=== PATIENT | female | born 1985 ===

== ENCOUNTER 2021-08-04 22:55 | Observation (INO) | payer OTHER, SELFPAY ==
[2021-08-05] MEDS ORDERED: Acetaminophen 500 MG TAB PO PRN (03:22)
[2021-08-05 03:54] VITALS: BMI 25.7
[2021-08-05 04:31] LABS: #Eosinphils 0.1 thou/uL (0.0-0.7); #Lymphocytes 2.1 thou/uL (1.20-3.40); #Monocytes 0.3 thou/uL (0.11-0.59); #Neutrophils 2.8 thou/uL (1.40-6.50); %Basophils 0.3 % (0.0-1.0); %Lymphocytes 38.8 % (21.0-51.0); %Monocytes 4.9 % (0.0-10.0); %Neutrophils 53.8 % (42.0-75.0); Hemoglobin 12.9 g/dL (12.0-16.0); Mean Corpuscular HGB CONC 32.4 g/dL (32.0-36.0); Mean Corpuscular Volume 83.4 fL (78.0-98.0); Mean Platelet Volume 6.7 fL (7.4-10.4); Platelet Count 336 thou/uL (130-400); RBC Distribution Width 15.3 % (11.5-14.5); Red Blood Cell (RBC) Count 4.76 mill/uL (4.20-5.40); White Blood Cell (WBC) Count 5.3 thou/uL (4.8-10.8)
[2021-08-05 04:52] LABS: ALT (SGPT) 890 U/L (8-55); AST (SGOT) 688 U/L (5-34); Albumin 3.6 g/dL (3.5-5.0); Alkaline Phosphatase 331 U/L (40-110); Anion Gap 10 mmol/L (10-20); BUN (Urea Nitrogen) 10 mg/dL (7.0-18.7); Bilirubin, Total 2.3 mg/dL (0.2-1.2); Calc. Creatinine Clearance 110 mL/min (70-130); Calcium 8.6 mg/dL (7.8-10.44); Carbon Dioxide 23 mmol/L (22-29); Chloride 109 mmol/L (98-107); Globulin 3.5 g/dL (2.4-3.5); Glucose 99 mg/dL (70-105); Potassium 3.6 mmol/L (3.5-5.1); Protein, Total 7.1 g/dL (6.0-8.3); Sodium 138 mmol/L (136-145)
[2021-08-05 04:56] LABS: PTT 25.3 sec (22.9-36.1); Prothrombin Time 13.3 sec (12.0-14.7)
[2021-08-05 05:31] LABS: SARS-CoV-2 NAA Rapid Test Not Detected (NotDetected)
[2021-08-05] MEDS: Sodium Chloride 0.9% 1,000 ML IV SCH ×2 (05:50→20:28)
[2021-08-05] MEDS ORDERED: FLU VACC QS2021-22(6MOS UP)/PF 60 MCG/0.5 ML SYRINGE IM ONE (09:00)
[2021-08-05] MEDS ORDERED: Magnevist 469MG/ML 20 ML VIAL ONE (10:56)
[2021-08-05 11:16] LABS: Prothrombin Time 13.1 sec (12.0-14.7)
[2021-08-05 11:44] LABS: HBCM Index 0.15 S/CO (0-0.79); HBSAg Index 0.21 S/CO (0-0.99); Hep A IgM AB Non-Reactive (NonReactive); Hep A IgM S/CO 0.24 S/CO (0-0.79); Hep B Surf Ag Non-Reactive S/CO (NonReactive); Hep C IgG Ab Non-Reactive (NonReactive); Hepatitis B Core IgM Abs Non-Reactive (NonReactive)
[2021-08-05] MEDS ORDERED: diphenhydrAMINE 50 MG/ML VIAL IVP PRN (12:56)
[2021-08-05] MEDS ORDERED: methylPREDNISolone Sod Succ/PF 125 MG/2 ML VIAL IVP SCH (13:15)
[2021-08-05] MEDS ORDERED: Famotidine/PF 20 mg/2ml Vial SLOW IVP SCH (13:15)
[2021-08-06] MEDS: Sodium Chloride 0.9% 1,000 ML IV SCH (05:28)
[2021-08-06 06:47] LABS: ALT (SGPT) 780 U/L (8-55); AST (SGOT) 299 U/L (5-34); Albumin 3.4 g/dL (3.5-5.0); Alkaline Phosphatase 381 U/L (40-110); Anion Gap 10 mmol/L (10-20); BUN (Urea Nitrogen) 8 mg/dL (7.0-18.7); Calc. Creatinine Clearance 119 mL/min (70-130); Calcium 8.8 mg/dL (7.8-10.44); Carbon Dioxide 22 mmol/L (22-29); Chloride 110 mmol/L (98-107); Globulin 3.5 g/dL (2.4-3.5); Glucose 97 mg/dL (70-105); Iron 99 ug/dL (50-170); Iron Binding Capacity, Total 268 mcg/dL (265-497); Protein, Total 6.9 g/dL (6.0-8.3); Sodium 138 mmol/L (136-145)
[2021-08-06 06:55] LABS: Prothrombin Time 13.5 sec (12.0-14.7)
[2021-08-06 07:13] LABS: #Basophils 0.1 thou/uL (0.0-0.2); #Lymphocytes 1.8 thou/uL (1.20-3.40); #Monocytes 0.4 thou/uL (0.11-0.59); #Neutrophils 5.7 thou/uL (1.40-6.50); %Basophils 1.3 % (0.0-1.0); %Eosinophils 0.4 % (0.0-10.0); %Monocytes 5.2 % (0.0-10.0); %Neutrophils 71.2 % (42.0-75.0); Hemoglobin 12.9 g/dL (12.0-16.0); Mean Corpuscular HGB CONC 31.2 g/dL (32.0-36.0); Mean Corpuscular Hemoglobin 27.2 pg (27.0-31.0); Mean Corpuscular Volume 87.2 fL (78.0-98.0); Mean Platelet Volume 8.6 fL (7.4-10.4); Platelet Count 212 thou/uL (130-400); RBC Distribution Width 15.7 % (11.5-14.5); Red Blood Cell (RBC) Count 4.74 mill/uL (4.20-5.40)
[2021-08-06] MEDS ORDERED: Bupivacaine 0.25% HCL 30 ML VIAL ONE (07:36)
[2021-08-06] MEDS ORDERED: EPINEPHrine 1 MG/ML AMP ONE (07:36)
[2021-08-06] MEDS ORDERED: Iothalamate Meglumine 60% 50 ML VIAL FS ONE (07:36)
[2021-08-06] MEDS ORDERED: Fentanyl 250 MCG/5 ML VIAL ONE ×2 (07:52→10:00)
[2021-08-06] MEDS ORDERED: Midazolam HCl 2 mg/2 ml Vial ONE (07:52)
[2021-08-06] MEDS ORDERED: SUGAMMADEX SODIUM 200 MG/2 ML VIAL ONE (07:53)
[2021-08-06] MEDS ORDERED: Ondansetron PF 4 MG/2 ML Vial ONE (08:00)
[2021-08-06] MEDS ORDERED: PROPOFOL 200 MG/20 ML VIAL ONE (08:00)
[2021-08-06] MEDS ORDERED: Glycopyrrolate 0.2 MG/ML 5 ML SYRINGE ONE (08:00)
[2021-08-06] MEDS ORDERED: Rocuronium Bromide 10 MG/ML (10ML VIAL) ONE (08:00)
[2021-08-06] MEDS ORDERED: Ketorolac Tromethamine 30 MG/ML VIAL ONE (08:00)
[2021-08-06] MEDS ORDERED: Dexamethasone 20 MG/5 ML VIAL ONE (08:00)
[2021-08-06] MEDS ORDERED: Lidocaine 1% PF 5 ML VIAL ONE (08:00)
[2021-08-06] MEDS ORDERED: Ioversol 68 % 50 ML VIAL ONE (08:29)
[2021-08-06] MEDS ORDERED: HYDROcodone/Acetaminophen 5/325 mg Tablet PO PRN ×2 (09:30)
[2021-08-06] MEDS ORDERED: Ibuprofen 200 MG TAB PO PRN (09:31)
[2021-08-06] MEDS ORDERED: Ondansetron HCl/PF 4 MG/2 ML Vial IVP PRN (09:35)
[2021-08-06] MEDS ORDERED: HYDROmorphone 2 MG/ML VIAL SLOW IVP PRN (09:35)
[2021-08-06] MEDS ORDERED: Promethazine HCl 25 MG/ML VIAL IM PRN (09:35)
[2021-08-06] MEDS ORDERED: Ketorolac Tromethamine 30 MG/ML VIAL IVP PRN (09:35)
[2021-08-06] MEDS ORDERED: Promethazine HCl 25 MG/ML VIAL IVPB PRN (09:35)
[2021-08-06] MEDS ORDERED: Promethazine HCl 25 MG/ML VIAL ONE (09:44)
[2021-08-06 15:33] LABS: ANA Symphony (Qualitative) Negative (Negative); ANA Symphony (Quantitative) 0.3 Ratio (< 0.7 Negative); EliA Vaculitis New Method **** NEW METHOD ****; Mitochondrial Ab 0.9 U/mL (<4 Negative); dsDNA IgG Antibody 0.6 IU/mL (<10 Negative)
[2021-08-06 18:40] VITALS: BP 121/76; TEMP 97.8
== END 2021-08-06 18:43 | disposition home or self-care (01) ==
LOC: T4-A 22:55
PROVIDERS: ADMIT Internal Medicine; ATTEND Family Medicine
PROC: 0FT44ZZ Resection of Gallbladder, Percutaneous Endoscopic Approach (ICD-10-PCS; principal; 2021-08-06)
PROC: BF101ZZ Fluoroscopy of Bile Ducts using Low Osmolar Contrast (ICD-10-PCS; 2021-08-06)
DX: K80.10 Calculus of gallbladder with chronic cholecystitis without obstruction (principal); K83.8 Other specified diseases of biliary tract; D18.09 Hemangioma of other sites; Z91.041 Radiographic dye allergy status; Z18.89 Other specified retained foreign body fragments; Z20.822 Contact with and (suspected) exposure to COVID-19
CPT/HCPCS: 36415; 47532; 74183; 80053; 80074; 82105; 82728; 83516; 83540; 83550; 85025; 85610; 85730; 86015; 86038; 86225; 88300; 88304; 96374; 96375; A9579; C1713; G0378; J0171; J1100; J1200; J1610; J1885; J2250; J2405; J2550; J2704; J2930; J3010; J7050; Q9961-U8; Q9967; S0020; S0028; U0002